=== PATIENT | male | born 1990 | race American Indian/Alaskan Native ===

== ENCOUNTER 2020-10-03 09:47 | Emergency (ER) | payer SELFPAY ==
[2020-10-03 10:39] VITALS: BP 137/88
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
[2020-10-03] MEDS ORDERED: FLUORESCEIN 1 MG STRIP OP ONE (10:41)
[2020-10-03] MEDS ORDERED: TETRACAINE 0.5% OPHTH SOLN 4ML OU STA (10:41)
[2020-10-03] MEDS ORDERED: SODIUM CHLORIDE 0.9% 1000 ML 1,000 ML IV ONE (10:48)
== END 2020-10-03 17:21 | disposition left against medical advice (07) ==
LOC: ED 09:47 → EDSEX 09:47 → ED 17:21
DX: S05.8X2A Other injuries of left eye and orbit, initial encounter (principal); I10 Essential (primary) hypertension; X58.XXXA Exposure to other specified factors, initial encounter; Y93.89 Activity, other specified; Y92.89 Other specified places as the place of occurrence of the external cause; Y99.8 Other external cause status
CPT/HCPCS: 99283; J7030

== ENCOUNTER 2020-11-05 16:03 | Emergency (ER) | payer SELFPAY ==
[2020-11-05 16:41] VITALS: BP 127/84
--- NOTE | 2020-11-05 19:00 | Emergency Department Report ---
ED General Adult HPI - General Chief complaint: Sore Throat Stated complaint: HEADACHE SORETHROAT Time Seen by Provider: 11/05/20 18:56 Source: patient Mode of arrival: Ambulatory Limitations: Language Barrier - History of Present Illness Initial comments: 30-year-old male patient with history of hypertension presents to the emergency department with complaints of chills, myalgias, sore throat, headache, and nasal congestion for 2 days. 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 Patient tested negative for COVID-19 earlier today. Patient has been taking Tylenol and Zoila-Lawn with limited relief. No current steroid or antibiotic use. No recent travel. Denies neck stiffness, vomiting, diarrhea, abdominal pain, shortness of breath, wheezing. Denies all other complaints at this time. - Related Data Previous Rx's Medication Instructions Recorded Last Taken Type Ibuprofen [Motrin] 600 mg PO Q8H PRN #30 tablet 10/03/20 Unknown Rx Allergies Allergy/AdvReac Type Severity Reaction Status Date / Time No Known Allergies Allergy Verified 11/05/20 16:35 ED Review of Systems ROS: Stated complaint: HEADACHE SORETHROAT Other details as noted in HPI Other: GENERAL: Positive for chills. ENT: Positive for sore throat. CARDIOVASCULAR: Negative for chest pain, palpitations, lower extremity swelling. PULMONARY: Negative for cough, dyspnea, wheezing, orthopnea, cyanosis. GASTROINTESTINAL: Negative for abdominal pain, nausea, vomiting, diarrhea, constipation. MUSCULOSKELETAL: Positive for myalgias. NEUROLOGICAL: Positive for headache. INTEGUMENTARY: Negative for erythema, rash, diaphoresis, laceration, ecchymosis. HEMATOLOGICAL: Negative for hemoptysis, hematemesis, hematochezia, hematuria. PSYCHIATRIC: Negative for hallucinations, suicidal ideation, homicidal ideation, anxiety, depression. ED Past Medical Hx - Past Medical History Hx Hypertension: Yes - Surgical History Additional Surgical History: Left rotator cuff repair, right thumb - Medications Home Medications: Home Medications Medication Instructions Recorded Confirmed Last Taken Type Ibuprofen [Motrin] 600 mg PO Q8H PRN #30 tablet 10/03/20 Unknown Rx ED Physical Exam - General Limitations: Language Barrier - Other Other exam information: General: Awake and alert. No acute distress. Head: Atraumatic, normocephalic. Eyes: EOMI. Pupils are equal and round. Normal sclera and conjunctiva. ENT: Oral mucosa is moist. Mild pharyngeal erythema without tonsillar swelling or exudate. Uvula is midline and nonedematous. No trismus. Neck: Supple. Tender anterior cervical lymph nodes. Pulmonary: No respiratory distress. Clear to auscultation bilaterally. Cardiac: Regular rate and rhythm. Pulses are palpable and equal bilaterally. No lower extremity cyanosis or edema. Skin: Warm and dry. No rashes. Abdomen: Soft, non-tender, non-protuberant. No guarding, rigidity, or rebound. Bowel sounds are normal. No organomegaly or masses noted. Back: Normal alignment. No CVA tenderness. Extremities: Symmetrical. Full range of motion intact. Neurological: Alert and oriented, appropriately interactive, no focal deficits. Psych: Cooperative. Appropriate mood and affect. Speech is evenly metered. Thoughts are logically construed. ED Course Vital Signs 11/05/20 16:39 Temperature 99.4 F Pulse Rate 90 Respiratory 20 Rate Blood Pressure 127/84 O2 Sat by Pulse 97 Oximetry ED Medical Decision Making - Medical Decision Making Differential diagnosis including but not limited to: strep pharyngitis, viral pharyngitis, peritonsillar abscess, pneumonia, pleural effusion, pneumothorax, viral upper respiratory infection On reevaluation, patient remains stable. No hypoxia, no respiratory distress. Rapid strep is negative. Confirmatory culture is pending. Chest x-ray without acute process. He is afebrile hemodynamically stable, tolerating oral intake without difficulty. History and exam findings suggestive of viral illness. No clinical indication for further diagnostic work-up on an emergent basis at this time. Patient will be discharged home with instructions for symptomatic treatment and referred to primary care provider for close outpatient follow-up. Patient expressed understanding and is agreeable to plan of care. Disease transmission precautions discussed. Strict return precautions provided. Repeat exam is unremarkable and benign. History, exam, diagnostic testing, and current condition do not suggest worrisome pathology to warrant further testing, continued ED treatment, admission, or surgical evaluation at this point. Given the low probability of a significant medical illness, it would be more likely to result in harm than benefit to perform further testing at this stage. Discussed findings, presumptive diagnosis, need for follow-up and specific signs/symptoms that should prompt immediate return to the emergency department. Instructions were explained in detail to the patient in addition to giving written discharge information. Patient expressed understanding and was given the opportunity to ask questions, all of which were satisfactorily answered prior to discharge home. Critical care attestation.: If time is entered above; I have spent that time in minutes in the direct care of this critically ill patient, excluding procedure time. ED Disposition Clinical Impression: Viral illness Disposition: 01 HOME / SELF CARE / HOMELESS Is pt being admited?: No Does the pt Need Aspirin: No Condition: Stable Instructions: Viral Illness, Adult Additional Instructions: Take Tylenol every 4 hours and Motrin every 8 hours as needed for pain/fever. Rest. Drink plenty of fluids. Wash hands frequently to prevent disease transmission. Do not share food or drinks with others. Follow-up with primary care provider this week. Call tomorrow to schedule an appointment. See referral information below. Return to the emergency department immediately for new or worsening symptoms. Specifically, return to the emergency department for increased pain, difficulty breathing, dehydration, mental status changes, or any other concerns. Referrals: JOSIANE CATES MD [Staff Physician] - 3-5 Days [facility] [Provider Group] - 3-5 Days Forms: Work/School Release Form(ED) Time of Disposition: 20:42
--- NOTE | 2020-11-05 19:24 | XRay Report ---
CHEST 2 VIEWS INDICATION / CLINICAL INFORMATION: chest pain/cough. FINDINGS: SUPPORT DEVICES: None. HEART / MEDIASTINUM: No significant abnormality. LUNGS / PLEURA: No significant pulmonary or pleural abnormality. No pneumothorax. ADDITIONAL FINDINGS: No significant additional findings. IMPRESSION: 1. No acute findings. Signer Name: Derrek Melara MD Signed: 11/05/2020 7:19 PM Workstation Name: [id number]
== END 2020-11-05 21:00 | disposition home or self-care (01) ==
LOC: ED 16:03
DX: B34.9 Viral infection, unspecified (principal); I10 Essential (primary) hypertension; Z79.899 Other long term (current) drug therapy; Z98.890 Other specified postprocedural states
CPT/HCPCS: 71046; 87116; 87430